=== PATIENT | female | born 1990 | race American Indian/Alaskan Native ===

== ENCOUNTER 2019-06-02 17:55 | Inpatient (IN) | payer MEDICAID ==
[2019-06-02] MEDS ORDERED: TYLENOL PO ONE ×2 (18:34→19:49)
[2019-06-02] MEDS ORDERED: MORPHINE IV ONE ×2 (18:34→22:32)
[2019-06-02] MEDS ORDERED: ZOFRAN IV ONE (18:34)
[2019-06-02] MEDS ORDERED: NACL 0.9% 1000 ML 1,000 ML IV ONE (18:34)
--- NOTE | 2019-06-02 18:35 | Event Note ---
ED Screening Note Date of service: 06/02/19 Time: 18:31 ED Screening Note: 28 y/o female comes for abd pain time 1 week with worsening pain. N/V LMP 05/25/19 G 2 P2 no pain with urination. chills. This initial assessment/diagnostic orders/clinical plan/treatment(s) is/are subject to change based on patients health status, clinical progression and re- assessment by fellow clinical providers in the ED. Further treatment and workup at subsequent clinical providers discretion. Patient/guardian urged not to elope from the ED as their condition may be serious if not clinically assessed and managed. Initial orders include:
[2019-06-02] MEDS ORDERED: PEPCID IV ONE ×2 (19:21→19:24)
[2019-06-02 19:37] LABS: Basophils # (Auto) 0.1 K/mm3 (0.0-0.1); Basophils % (Auto) 0.5 % (0.0-1.8); Eosinophils % (Auto) 0.1 % (0.0-4.3); Hematocrit 39.9 % (30.3-42.9); Hemoglobin 14.1 gm/dl (10.1-14.3); Lymphocytes # (Auto) 2.1 K/mm3 (1.2-5.4); Lymphocytes % (Auto) 10.8 % (13.4-35.0); Mean Corpuscular HGB Conc 35 % (30-34); Mean Corpuscular Volume 88 fl (79-97); Monocytes # (Auto) 1.1 K/mm3 (0.0-0.8); Monocytes % (Auto) 5.6 % (0.0-7.3); Platelet Count 401 K/mm3 (140-440); Red Blood Count 4.51 M/mm3 (3.65-5.03); Red Cell Distribution Width 13.2 % (13.2-15.2)
--- NOTE | 2019-06-02 19:52 | Emergency Department Report ---
ED Abdominal Pain HPI - General Chief Complaint: Abdominal Pain Stated Complaint: ABD PAIN Time Seen by Provider: 06/02/19 18:31 Source: patient, EMS Mode of arrival: Wheelchair Limitations: No Limitations - History of Present Illness Initial Comments: Patient is a 28-year-old, thin female medical history presents with complaint of acute onset persistent severe right upper quadrant abdominal pain that daily as to the right lower quadrant area with persistent nausea and vomiting for the last 1 week. Patient states of appendicitis was made eating or drinking any liquids. Patient also complains of chills and fever for the last 2 days. Patient states that she has not been able to eat anything in the last 24 hours because of persistent nausea, vomiting and pain. Patient denies dizziness, chest pain, shortness of breath, cough, dysuria, urinary frequency and urgency, sore throat, vaginal bleeding, hematochezia, hematemesis, diarrhea or vaginal discharge. MD Complaint: abdominal pain, other (Nausea and vomiting) -: Sudden, week(s) (1) Location: RUQ, RLQ Radiation: RUQ, RLQ Migration to: no migration Severity: severe Severity scale (0 -10): 10 Quality: cramping, aching, sharp Consistency: constant Improves With: nothing Worsens With: nothing Associated Symptoms: denies other symptoms, nausea, vomiting, fever, chills, anorexia. denies: diarrhea, dysuria, hematemesis, hematochezia, melena, syncope - Related Data LMP Date: 05/28/19 Allergies Allergy/AdvReac Type Severity Reaction Status Date / Time No Known Allergies Allergy Unverified 06/02/19 18:09 ED Review of Systems ROS: Stated complaint: ABD PAIN Other details as noted in HPI Constitutional: chills, fever, malaise Eyes: denies: eye pain, eye discharge, vision change ENT: denies: ear pain, throat pain Respiratory: denies: cough, shortness of breath, wheezing Cardiovascular: denies: chest pain, palpitations Endocrine: no symptoms reported Gastrointestinal: abdominal pain, nausea, vomiting. denies: diarrhea Genitourinary: denies: urgency, dysuria, discharge Musculoskeletal: denies: back pain, joint swelling, arthralgia Skin: denies: rash, lesions Neurological: denies: headache, weakness, paresthesias Psychiatric: denies: anxiety, depression Hematological/Lymphatic: denies: easy bleeding, easy bruising ED Past Medical Hx - Past Medical History Previous Medical History?: Yes Additional medical history: epilepsy - Surgical History Past Surgical History?: No - Social History Smoking Status: Current Every Day Smoker Substance Use Type: Marijuana ED Physical Exam - General Limitations: No Limitations General appearance: alert, in no apparent distress - Head Head exam: Present: atraumatic, normocephalic, normal inspection - Eye Eye exam: Present: normal appearance, PERRL, EOMI Pupils: Present: normal accommodation - ENT ENT exam: Present: normal exam, normal orophraynx, mucous membranes moist, TM's normal bilaterally, normal external ear exam - Neck Neck exam: Present: normal inspection, full ROM - Respiratory Respiratory exam: Present: normal lung sounds bilaterally. Absent: respiratory distress, wheezes, rales, rhonchi, chest wall tenderness, accessory muscle use, prolonged expiratory, other - Cardiovascular Cardiovascular Exam: Present: regular rate, normal rhythm, normal heart sounds. Absent: systolic murmur, diastolic murmur, rubs, gallop - GI/Abdominal GI/Abdominal exam: Present: soft, tenderness (RUQ and RLQ tenderness; Postive Rodriguez's sign), guarding, normal bowel sounds. Absent: rebound, hyperactive bowel sounds, hypoactive bowel sounds, organomegaly, mass, pulsatile mass, hernia - Rectal Rectal exam: Present: deferred - Extremities Exam Extremities exam: Present: normal inspection, full ROM, normal capillary refill - Back Exam Back exam: Present: normal inspection, full ROM. Absent: tenderness, CVA tenderness (R), CVA tenderness (L), muscle spasm - Neurological Exam Neurological exam: Present: alert, oriented X3, CN II-XII intact, normal gait, reflexes normal - Psychiatric Psychiatric exam: Present: normal affect, normal mood - Skin Skin exam: Present: warm, dry, intact, normal color. Absent: rash ED Course Vital Signs 06/02/19 18:27 Temperature 100.1 F H Pulse Rate 90 Blood Pressure 125/83 O2 Sat by Pulse 100 Oximetry - Reevaluation(s) Reevaluation #1: 06/02/19 19:54 This is a 28-year-old -[place] female with a history of seizures who presented to the ED with acute onset right upper quadrant abdominal pain that radiates to the right lower quadrant area with nausea and vomiting, fever and chills for 1 week. In the ED, patient is alert and oriented 3, and is not in any distress but febrile and appears to be in pain. Labs were drawn and patient treated for fever, also given normal saline IV fluids. Gallbladder ultrasound was also performed and showed no gallstones but gallbladder sludge. Abdomen pelvis CT scan with contrast showed abnormal right renal cortical enhancement suggestive of pyelonephritis/nephritis without evidence of renal abscess. The appendix was normal. Patient was treated with Rocephin 1 g IV 1 with antiemetics. On reevaluation, patient still complaining of severe right lower quadrant pain with nausea and vomiting and is unable to keep anything by mouth. These findings were discussed with the ED attending physician Dr. Krishna who agreed with the plan ADMIT the patient to the hospital. I therefore paged the hospitalist physician web operations manager Dr. Peralta who admitted the patient to the hospital for further treatment. ED Medical Decision Making - Lab Data Result diagrams: 06/02/19 18:46 06/02/19 18:46 - Radiology Data Radiology results: report reviewed, image reviewed RUQ ULTRASOUND: Findings [place] [id number] Ultrasound Report Signed Patient: DENNIS HAWK MR#: [id number] : 1990 Acct:[id number] Age/Sex: 28 / F ADM Date: 06/02/19 Loc: ED Attending Dr: Ordering Physician: RAHEL FRANK Date of Service: 06/02/19 Procedure(s): US abdomen limited Accession Number(s): [id number] cc: RAHEL FRANK ULTRASOUND ABDOMEN, LIMITED (RIGHT UPPER QUADRANT) INDICATION: RUQ Pain. COMPARISON: None available. FINDINGS: Pancreas: Visualized portion shows no significant abnormality. Liver: Normal. Gallbladder: Small amount of gallbladder sludge without visualized stones Bile ducts: Normal. Common Bile Duct measures 3 mm. Free fluid: None. Additional Findings: None. IMPRESSION: 1. Gallbladder sludge without cholelithiasis Signer Name: Alexander Marquez MD Signed: 06/02/2019 8:49 PM Workstation Name: [id number] Transcribed By: TL Dictated By: Alexander Marquez MD Electronically Authenticated By: Alexander Marquez MD Signed Date/Time: 06/02/192048 DD/ 47 TD/TT: Findings [facility] [address] [place] [address] Cat Scan Report Signed Patient: DENNIS HAWK MR#: [id number] : 1990 Acct:[id number] Age/Sex: 28 / F ADM Date: 06/02/19 Loc: ED Attending Dr: Ordering Physician: RAHEL DAY Date of Service: 06/02/19 Procedure(s): CT abdomen pelvis w con Accession Number(s): [id number] cc: RAHEL DAY CT abdomen pelvis w con INDICATION / CLINICAL INFORMATION: RUQ pain. TECHNIQUE: All CT scans at this location are performed using CT dose reduction for ALARA by means of automated exposure control. COMPARISON: None available. FINDINGS: Lower lungs are clear. ABDOMEN: The gallbladder, liver, spleen and pancreas are normal. The left kidney appears normal. There is patchy enhancement of the right renal parenchyma. No hydronephrosis or urinary calculi. No perinephric fluid collections. Pelvis: The appendix is normal. A small free fluid collection is seen in the pelvis without associated inflammatory changes. Urinary bladder is mildly distended but otherwise unremarkable. Multiple small left ovarian cysts are identified. No skeletal abnormality. IMPRESSION: 1. Abnormal right renal cortical enhancement suggestive of pyelonephritis/nephritis without evidence of renal abscess. 2. Small left ovarian cysts. 3. Small free fluid collection in the pelvis. Signer Name: Morgan Bettencourt MD Signed: 06/02/2019 10:46 PM Workstation Name: [id number] Transcribed By: STEPHIE Dictated By: Morgan Bettencourt MD Electronically Authenticated By: Morgan Bettencourt MD Signed Date/Time: 06/02/192245 DD/ 40 TD/TT: - Medical Decision Making This is a 28-year-old -[place] female with a history of seizures who presented to the ED with acute onset right upper quadrant abdominal pain that radiates to the right lower quadrant area with nausea and vomiting, fever and chills for 1 week. In the ED, patient is alert and oriented 3, and is not in any distress but febrile and appears to be in pain. Labs were drawn and patient treated for fever, also given normal saline IV fluids. Gallbladder ultrasound was also performed and showed no gallstones but gallbladder sludge. Abdomen pelvis CT scan with contrast showed abnormal right renal cortical enhancement suggestive of pyelonephritis/nephritis without evidence of renal abscess. The appendix was normal. Patient was treated with Rocephin 1 g IV 1 with antiemetics. On reevaluation, patient still complaining of severe right lower quadrant pain with nausea and vomiting and is unable to keep anything by mouth. These findings were discussed with the ED attending physician Dr. Krishna who agreed with the plan ADMIT the patient to the hospital. I therefore paged the hospitalist physician web operations manager Dr. Peralta who admitted the patient to the hospital for further treatment. - Differential Diagnosis Abdominal pain; Acute pyelonephritis; Acute URI; Fever; Vomiting Critical care attestation.: If time is entered above; I have spent that time in minutes in the direct care of this critically ill patient, excluding procedure time. ED Disposition Clinical Impression: Nausea and vomiting in adult, Fever and chills, Acute pyelonephritis, Acute urinary tract infection Abdominal pain Qualifiers: Abdominal location: lower abdomen, unspecified Qualified Code(s): R10.30 - Lower abdominal pain, unspecified Disposition: OP ADMIT IP TO THIS HOSP Is pt being admited?: Yes Does the pt Need Aspirin: No Condition: Stable Instructions: Urinary Tract Infection in Women (ED), Fever in Adults (ED), Acute Pyelonephritis (ED), Acute Nausea and Vomiting (ED), Abdominal Pain (ED) Additional Instructions: Take medications with food, drink plenty off fluids and follow-up with your primary care physician in 7-10 days for reevaluation. Return to the ED immediately if symptoms get worse. Referrals: [facility] [Outside] - 3-5 Days Time of Disposition: 00:27 Print Language: SPANISH
[2019-06-02 19:55] LABS: Alanine Aminotransferase 12 units/L (7-56); Albumin 4.3 g/dL (3.9-5); BUN/Creatinine Ratio 7; Blood Urea Nitrogen 6 mg/dL (7-17); Calcium 9.4 mg/dL (8.4-10.2); Hemolysis Index 0
--- NOTE | 2019-06-02 20:53 | Ultrasound Report ---
ULTRASOUND ABDOMEN, LIMITED (RIGHT UPPER QUADRANT) INDICATION: RUQ Pain. COMPARISON: None available. FINDINGS: Pancreas: Visualized portion shows no significant abnormality. Liver: Normal. Gallbladder: Small amount of gallbladder sludge without visualized stones Bile ducts: Normal. Common Bile Duct measures 3 mm. Free fluid: None. Additional Findings: None. IMPRESSION: 1. Gallbladder sludge without cholelithiasis Signer Name: Alexander Marquez MD Signed: 06/02/2019 8:49 PM Workstation Name: [id number]
[2019-06-02 21:44] LABS: HCG Qualitative,Urine Negative (Negative)
[2019-06-02 21:48] LABS: Bilirubin,Urine NEG (Negative); Blood,Urine MOD (Negative); Color,Urine Yellow (Yellow); Mucus,Urine FEW /HPF
[2019-06-02] MEDS ORDERED: ROCEPHIN/NS 1 GM/50 ML 1 GM/50 ML BAG IV ONE (22:21)
[2019-06-02] MEDS ORDERED: REGLAN IV ONE (22:32)
--- NOTE | 2019-06-02 22:50 | Cat Scan Report ---
CT abdomen pelvis w con INDICATION / CLINICAL INFORMATION: RUQ pain. TECHNIQUE: All CT scans at this location are performed using CT dose reduction for ALARA by means of automated e xposure control. COMPARISON: None available. FINDINGS: Lower lungs are clear. ABDOMEN: The gallbladder, liver, spleen and pancreas are normal. The left kidney appears normal. There is patchy enhancement of the right renal parenchyma. No hydronephrosis or urinary calculi. No perinephric fluid collections. Pelvis: The appendix is normal. A small free fluid collection is seen in the pelvis without associated inflammatory changes. Urinary bladder is mildly distended but otherwise unremarkable. Multiple small left ovarian cysts are identified. No skeletal abnormality. IMPRESSION: 1. Abnormal right renal cortical enhancement suggestive of pyelonephritis/nephritis without evidence of renal abscess. 2. Small left ovarian cysts. 3. Small free fluid collection in the pelvis. Signer Name: Morgan Bettencourt MD Signed: 06/02/2019 10:46 PM Workstation Name: [id number]
[2019-06-03] MEDS ORDERED: DILAUDID IV ONE (00:28)
[2019-06-03] MEDS ORDERED: ZOFRAN IV ONE (00:28)
[2019-06-03] MEDS ORDERED: NACL 0.9% 1000 ML 1,000 ML IV ONE (00:28)
[2019-06-03] MEDS ORDERED: SODIUM CHLORIDE FLUSH SYRINGE 10 ML IV PRN (01:16)
[2019-06-03] MEDS ORDERED: TYLENOL PO PRN (01:16)
[2019-06-03] MEDS ORDERED: ZOFRAN IV PRN (01:16)
--- NOTE | 2019-06-03 01:18 | History and Physical Report ---
History of Present Illness Date of examination: 06/03/19 History of present illness: 28-year-old woman with no medical problems comes emergency room with complaints of right-sided pain, sharp, constant, intensity 7/10, no radiation, can't identify exacerbating factors. Admit somewhat less of nausea and vomiting, unable to tolerate oral intake. No dysuria, + frequency eview Of Systems: Constitutional: no weight loss, fever, chills Ears, eyes, nose, mouth and throat: no nasal congestion, no nasal discharge, no sinus pressure, blurry vision, diplopia Neck: No neck pain or rigidity. Cardiovascular: No palpitations, chest pain Respiratory: No shortness of breath, cough Gastrointestinal: No hematochezia, abdominal pain Genitourinary : no dysuria, frequency , hematuria Musculoskeletal: no muscle ache , joint pain Integumentary: no rash, no pruritis Neurological: no parathesias, focal weakness Endocrine: no cold or heat intolerance, no polyuria or polydipsia Hematologic/Lymphatic: no easy bruising, no easy bleeding, no gland swelling Allergic/Immunologic: no urticaria, no angioedema. PAST MEDICAL HISTORY: None PAST SURGICAL HISTORY:None FAMILY HISTORY:hypertension, diabetes SOCIAL HISTORY: Denies tobacco, drugs, alcohol Medications and Allergies Allergies Allergy/AdvReac Type Severity Reaction Status Date / Time No Known Allergies Allergy Unverified 06/02/19 18:09 Home Medications Medication Instructions Recorded Confirmed Last Taken Type levETIRAcetam [Keppra TAB] 1,000 mg PO BID 06/03/19 06/03/19 06/02/19 History 1000mg Acetaminophen [Acetaminophen TAB] 650 mg PO Q4H PRN tablet 06/05/19 Unknown Rx levoFLOXacin [Levaquin] 750 mg PO QDAY #5 tablet 06/05/19 Unknown Rx Active Meds: Active Medications Acetaminophen (Tylenol) 650 mg PO Q4H PRN PRN Reason: Pain MILD(1-3)/Fever >100.5/MCNULTY Enoxaparin Sodium (Lovenox) 30 mg SUB-Q QDAY IGNACIO Sodium Chloride (Nacl 0.9% 1000 Ml) 1,000 mls @ 999 mls/hr IV BOLUS ONE Stop: 06/03/19 01:28 Sodium Chloride (Nacl 0.9% 1000 Ml) 1,000 mls @ 150 mls/hr IV DIRECT IGNACIO Morphine Sulfate (Morphine) 2 mg IV Q4H PRN PRN Reason: Pain, Moderate (4-6) Ondansetron HCl (Zofran) 4 mg IV Q4H PRN PRN Reason: Nausea And Vomiting Sodium Chloride (Sodium Chloride Flush Syringe 10 Ml) 10 ml IV BID IGNACIO Sodium Chloride (Sodium Chloride Flush Syringe 10 Ml) 10 ml IV PRN PRN PRN Reason: LINE FLUSH Exam - Physical Exam Narrative exam: General Apperance: The patient sitting in bed no acute distress HEENT: Normocephalic, atraumatic. Pupils equally round and reactive to light, extraocular movement intact, and no sclericterus or JVD or thyromegaly or nodule. Neck supple, no carotid bruit, mucous membranes moist, no exudate or erythema Heart: S1-S2, regular is rhythm Lungs: Clear to auscultation bilaterally, breathing comfortable Abdomen: Positive bowel sounds, soft, nontender, nondistended, no organomegaly Extremities: No edema cyanosis clubbing Skin: no rash, nodule, warm and dry Neuro:CN 2 -12 intact, motor/sensory intact, speech is fluent - Constitutional Vitals: Temp Pulse Resp BP Pulse Ox 100.1 F H 90 125/83 100 06/02/19 18:27 06/02/19 18:27 06/02/19 18:27 06/02/19 18:27 Results - Labs CBC & Chem 7: 06/05/19 05:35 06/04/19 12:51 Labs: Abnormal lab results 06/02/19 06/02/19 06/02/19 Range/Units 18:46 18:46 21:24 WBC 19.3 H (4.5-11.0) K/mm3 MCHC 35 H (30-34) % Lymph % (Auto) 10.8 L (13.4-35.0) % [place] # 1.1 H (0.0-0.8) K/mm3 Seg Neutrophils % 83.0 H (40.0-70.0) % Seg Neutrophils # 16.0 H (1.8-7.7) K/mm3 Carbon Dioxide 20 L (22-30) mmol/L BUN 6 L (7-17) mg/dL Total Protein 9.0 H (6.3-8.2) g/dL Urine WBC (Auto) 81.0 H (0.0-6.0) /HPF - Imaging and Cardiology CT scan - abdomen: report reviewed CT scan - pelvis: report reviewed Assessment and Plan Assessment Acute pyelonephritis Nausea and vomiting Admitted to medicine Start IV Rocephin IV fluid, pain medication and DVT prophylaxis
[2019-06-03] MEDS ORDERED: LEVAQUIN 750MG/150ML 750 MG/150 ML BAG IV SCH (01:19)
[2019-06-03 02:39] LABS: BUN/Creatinine Ratio 9; Blood Urea Nitrogen 8 mg/dL (7-17); Calcium 8.5 mg/dL (8.4-10.2); Hemolysis Index 9
[2019-06-03 03:40] LABS: Hematocrit 41.1 % (30.3-42.9); Hemoglobin 13.6 gm/dl (10.1-14.3); Mean Corpuscular HGB Conc 33 % (30-34); Mean Corpuscular Volume 90 fl (79-97); Platelet Count 378 K/mm3 (140-440); Red Blood Count 4.58 M/mm3 (3.65-5.03); Red Cell Distribution Width 13.1 % (13.2-15.2)
[2019-06-03 04:25] LABS: Basophils % (Manual) 0 % (0.0-1.8); Eosinophils % (Manual) 0 % (0.0-4.3); Total Cells Counted 100
[2019-06-03 04:26] LABS: Anisocytosis Few; Platelet Estimate Consistent w Auto
[2019-06-03] MEDS: NACL 0.9% 1000 ML 1,000 ML IV SCH ×3 (05:00→22:50)
[2019-06-03] MEDS: MORPHINE IV PRN ×3 (05:19→21:32)
[2019-06-03 06:44] LABS: Basophils # (Auto) 0.1 K/mm3 (0.0-0.1); Basophils % (Auto) 0.4 % (0.0-1.8); Eosinophils % (Auto) 0.1 % (0.0-4.3); Lymphocytes # (Auto) 2.6 K/mm3 (1.2-5.4); Lymphocytes % (Auto) 14.1 % (13.4-35.0); Monocytes # (Auto) 1.4 K/mm3 (0.0-0.8); Monocytes % (Auto) 7.6 % (0.0-7.3)
[2019-06-03] MEDS: LOVENOX SUB-Q SCH (09:31)
[2019-06-03] MEDS: SODIUM CHLORIDE FLUSH SYRINGE 10 ML IV SCH ×2 (09:32→21:38)
[2019-06-03] MEDS ORDERED: LOVENOX SUB-Q SCH (10:00)
[2019-06-03] MEDS: PERCOCET 5/325 PO PRN ×3 (12:02→23:56)
[2019-06-03] MEDS: KEPPRA PO SCH ×2 (12:02→21:35)
[2019-06-03] MEDS: ROCEPHIN/NS 1 GM/50 ML 1 GM/50 ML BAG IV SCH (12:26)
[2019-06-03] MEDS ORDERED: ALUM-MAG HYDROX-SIMETH 200-200-20MG/5ML PO PRN (22:36)
[2019-06-04] MEDS: PERCOCET 5/325 PO PRN ×3 (06:00→20:22)
--- NOTE | 2019-06-04 07:24 | Event Note ---
Date: 06/03/19 patient seen and examined presented with UTI and pylonephritis, follow Cx, cont abx possible d/c in 1/2 days pending clinical improvement
[2019-06-04] MEDS ORDERED: PEPCID IV SCH (10:00)
[2019-06-04] MEDS: ROCEPHIN/NS 1 GM/50 ML 1 GM/50 ML BAG IV SCH (10:46)
[2019-06-04] MEDS: KEPPRA PO SCH ×2 (10:46→21:46)
[2019-06-04] MEDS: LOVENOX SUB-Q SCH (10:46)
[2019-06-04] MEDS: SODIUM CHLORIDE FLUSH SYRINGE 10 ML IV SCH ×2 (10:47→21:46)
[2019-06-04 13:41] LABS: Hematocrit 39.1 % (30.3-42.9); Hemoglobin 13.2 gm/dl (10.1-14.3); Mean Corpuscular HGB Conc 34 % (30-34); Mean Corpuscular Volume 89 fl (79-97); Platelet Count 385 K/mm3 (140-440); Red Blood Count 4.42 M/mm3 (3.65-5.03); Red Cell Distribution Width 13.1 % (13.2-15.2)
[2019-06-04 14:01] LABS: BUN/Creatinine Ratio 9; Blood Urea Nitrogen 6 mg/dL (7-17); Calcium 8.6 mg/dL (8.4-10.2); Hemolysis Index 0
--- NOTE | 2019-06-04 15:48 | Progress Note ---
Assessment and Plan Acute pyelonephritis with sepsis Nausea and vomiting due to above Mild hyponatremia, due to dehydration DVT prophylaxis -Continue IV Rocephin, IV fluid, pain medication, follow culture - Follow fever curve, DVT prophylaxis with Lovenox - Monitor BMP Physical exam: GENERAL: well-developed and well-nourished -[place] female lying on bed appeared to be in no discomfort. HEENT: Normocephalic. Atraumatic. No conjunctival congestion or icterus. Patient has moist mucous membranes. NECK: Supple. Trachea midline. CHEST/LUNGS: Clear to auscultated bilaterally, breathing nonlabored. No wheezes crackles or rhonchi. HEART/CARDIOVASCULAR: Regular in rate and rhythm. S1 and S2 positive. ABDOMEN: Abdomen is soft, + right flank CVA tender. Patient has normal bowel sounds. SKIN: There is no rash. Warm and dry. NEURO: No focal motor deficit. Follows command. MUSCULOSKELETAL: No joint effusion or tenderness. EXTRIMITY: No edema, no cyanosis or clubbing. PSYCH: Cooperative. Subjective Date of service: 06/04/19 Interval history: Patient seen and examined. Medical records and medication list reviewed. No acute event overnight noted by the RN. Patient denies any chest pain or difficulty breathing. Patient is tolerating diet. Still complains of abdominal pain and dysuria Discussed plan of care at bedside with patient. Objective - Constitutional Vitals: Vital Signs - 12hr 06/04/19 06/04/19 06:10 11:39 Temperature 98.2 F 98.9 F Pulse Rate 68 83 Respiratory 18 18 Rate Blood Pressure 104/75 130/93 O2 Sat by Pulse 100 100 Oximetry - Labs CBC & Chem 7: 06/04/19 12:51 06/04/19 12:51 Labs: Abnormal lab results 06/04/19 06/04/19 Range/Units 12:51 12:51 WBC 14.5 H (4.5-11.0) K/mm3 RDW 13.1 L (13.2-15.2) % Carbon Dioxide 21 L (22-30) mmol/L BUN 6 L (7-17) mg/dL
[2019-06-04] MEDS: NACL 0.9% 1000 ML 1,000 ML IV SCH ×2 (16:41→22:36)
[2019-06-04] MEDS: MORPHINE IV PRN (19:09)
[2019-06-04] MEDS: PEPCID PO SCH (21:46)
[2019-06-05] MEDS: PERCOCET 5/325 PO PRN (03:46)
[2019-06-05 06:24] LABS: Basophils % (Auto) 0.2 % (0.0-1.8); Eosinophils # (Auto) 0.1 K/mm3 (0.0-0.4); Eosinophils % (Auto) 0.5 % (0.0-4.3); Hematocrit 36.2 % (30.3-42.9); Lymphocytes # (Auto) 1.9 K/mm3 (1.2-5.4); Lymphocytes % (Auto) 15.2 % (13.4-35.0); Mean Corpuscular HGB Conc 33 % (30-34); Mean Corpuscular Volume 89 fl (79-97); Monocytes # (Auto) 0.9 K/mm3 (0.0-0.8); Monocytes % (Auto) 7.4 % (0.0-7.3); Platelet Count 344 K/mm3 (140-440); Red Blood Count 4.06 M/mm3 (3.65-5.03); Red Cell Distribution Width 12.9 % (13.2-15.2)
[2019-06-05] MEDS: KEPPRA PO SCH (11:05)
[2019-06-05] MEDS: PEPCID PO SCH (11:05)
[2019-06-05] MEDS: ROCEPHIN/NS 1 GM/50 ML 1 GM/50 ML BAG IV SCH (11:06)
[2019-06-05] MEDS: LOVENOX SUB-Q SCH (11:06)
[2019-06-05] MEDS: SODIUM CHLORIDE FLUSH SYRINGE 10 ML IV SCH (11:10)
[2019-06-05] MEDS ORDERED: BENADRYL PO PRN (12:00)
[2019-06-05 12:42] VITALS: BP 133/92
--- NOTE | 2019-06-05 13:12 | Discharge Summary ---
Providers - Providers Date of Admission: 06/03/19 01:11 Date of discharge: 06/05/19 Attending physician: MICHAEL ORNELAS Primary care physician: JUDY CACERES Hospitalization Condition: Stable Hospital course: Discharge diagnosis: Acute pyelonephritis with sepsis Nausea and vomiting due to above Mild hyponatremia, due to dehydration DVT prophylaxis -Continue IV Rocephin, IV fluid, pain medication, culture grew e.coli - Follow fever curve, DVT prophylaxis with Lovenox - Monitor BMP Physical exam: GENERAL: well-developed and well-nourished -[place] female lying on bed appeared to be in no discomfort. HEENT: Normocephalic. Atraumatic. No conjunctival congestion or icterus. Patient has moist mucous membranes. NECK: Supple. Trachea midline. CHEST/LUNGS: Clear to auscultated bilaterally, breathing nonlabored. No wheezes crackles or rhonchi. HEART/CARDIOVASCULAR: Regular in rate and rhythm. S1 and S2 positive. ABDOMEN: Abdomen is soft, + right flank CVA tender. Patient has normal bowel sounds. SKIN: There is no rash. Warm and dry. NEURO: No focal motor deficit. Follows command. MUSCULOSKELETAL: No joint effusion or tenderness. EXTRIMITY: No edema, no cyanosis or clubbing. PSYCH: Cooperative. Disposition: DC-01 TO HOME OR SELFCARE Time spent for discharge: 34 minutes Core Measure Documentation - Palliative Care Palliative Care/ Comfort Measures: Not Applicable - Core Measures Any of the following diagnoses?: none Exam - Constitutional Vitals: Temp Pulse Resp BP Pulse Ox 97.4 F L 61 18 133/92 100 06/05/19 12:20 06/05/19 12:20 06/05/19 12:20 06/05/19 12:20 06/05/19 12:20 Plan Activity: advance as tolerated Weight Bearing Status: Weight Bear as Tolerated Diet: low fat, low salt [facility] Prescriptions: levoFLOXacin [Levaquin] 750 mg PO QDAY #5 tablet
== END 2019-06-05 16:20 | disposition home or self-care (01) | DRG 872 ==
LOC: ED 17:55 → 4A 06-03 01:11 → 3A 06-03 03:26
PROVIDERS: ADMIT Internal Medicine; ATTEND Internal Medicine
DX: A41.9 Sepsis, unspecified organism (principal); N10 Acute pyelonephritis; E87.1 Hypo-osmolality and hyponatremia; E86.0 Dehydration; F17.200 Nicotine dependence, unspecified, uncomplicated; F12.90 Cannabis use, unspecified, uncomplicated; Z82.49 Family history of ischemic heart disease and other diseases of the circulatory system; Z83.3 Family history of diabetes mellitus; Z79.899 Other long term (current) drug therapy
CPT/HCPCS: 36415; 74177; 76705; 80048; 80053; 81001; 81025; 82140; 83690; 85007; 85025; 85027; 87040; 87076; 87086; 87116; 87186; 99406; G0378; J0696; J1650; J1956; J2270; J2405; J2765; J7030; Q9967

== ENCOUNTER 2021-10-28 11:13 | Emergency (ER) | payer MEDICAID ==
--- NOTE | 2021-10-28 14:02 | Emergency Department Report ---
- General Chief complaint: Skin/Abscess/Foreign Body Stated complaint: BOIL Time Seen by Provider: 10/28/21 13:53 Source: patient Mode of arrival: Ambulatory Limitations: No Limitations - History of Present Illness Initial comments: 30 year female presents to ED with complaints to abscess to right face. She states that it started off like a small bump about 1 week ago but since then has gotten worse. She states that it now feels like her entire right face swollen with increased pain. She states that he did drink a little bit couple days ago and did go down, but it flared back up. She denies any significant amount of redness to the right side of her face, difficulty opening her mouth, dental pain, difficulty swallowing fever or chills. Other than history of seizure di sorder she denies any other significant past medical history. MD complaint: abscess/boil -: week(s) (1) - Related Data Home Medications Medication Instructions Recorded Confirmed Last Taken levETIRAcetam [Keppra TAB] 1,000 mg PO BID 06/03/19 06/03/19 06/02/19 1000 mg Previous Rx's Medication Instructions Recorded Last Taken Type Acetaminophen [Acetaminophen TAB] 650 mg PO Q4H PRN tablet 06/05/19 Unknown Rx levoFLOXacin [Levaquin] 750 mg PO QDAY #5 tablet 06/05/19 Unknown Rx Acetaminophen/Codeine [Tylenol 1 tab PO Q6H PRN #12 tab 10/28/21 Unknown Rx /Codeine # 3 tab] DOXYCYCLINE Hyclate [Vibramycin 100 mg PO Q12HR #14 capsule 10/28/21 Unknown Rx CAP] Ibuprofen [Motrin] 600 mg PO Q8H PRN #30 tablet 10/28/21 Unknown Rx Allergies Allergy/AdvReac Type Severity Reaction Status Date / Time No Known Allergies Allergy Unverified 06/02/19 18:09 Abscess Boil HPI - HPI Chief Complaint: Skin/Abscess/Foreign Body Stated Complaint: BOIL Time Seen by Provider: 10/28/21 13:53 Home Medications: Home Medications Medication Instructions Recorded Confirmed Last Taken levETIRAcetam [Keppra TAB] 1,000 mg PO BID 06/03/19 06/03/19 06/02/19 1000 mg Previous Rx's Medication Instructions Recorded Last Taken Type Acetaminophen [Acetaminophen TAB] 650 mg PO Q4H PRN tablet 06/05/19 Unknown Rx levoFLOXacin [Levaquin] 750 mg PO QDAY #5 tablet 06/05/19 Unknown Rx Acetaminophen/Codeine [Tylenol 1 tab PO Q6H PRN #12 tab 10/28/21 Unknown Rx /Codeine # 3 tab] DOXYCYCLINE Hyclate [Vibramycin 100 mg PO Q12HR #14 capsule 10/28/21 Unknown Rx CAP] Ibuprofen [Motrin] 600 mg PO Q8H PRN #30 tablet 10/28/21 Unknown Rx Allergies/Adverse Reactions: Allergies Allergy/AdvReac Type Severity Reaction Status Date / Time No Known Allergies Allergy Unverified 06/02/19 18:09 ED Review of Systems ROS: Stated complaint: BOIL Other details as noted in HPI Comment: All other systems reviewed and negative Constitutional: denies: chills, fever, weakness Eyes: denies: eye pain, eye discharge, vision change ENT: denies: ear pain, throat pain, congestion Respiratory: denies: cough, shortness of breath, SOB with exertion, SOB at rest, wheezing Cardiovascular: denies: chest pain, palpitations, dyspnea on exertion, edema, syncope, paroxysmal nocturnal dyspnea Gastrointestinal: denies: abdominal pain, nausea, vomiting, diarrhea, constipation, hematemesis, melena, hematochezia Skin: rash, other (Abscess to face). denies: change in color, change in hair/nails, pruritus Neurological: denies: headache, weakness, numbness, paresthesias, confusion, abnormal gait, vertigo Psychiatric: denies: anxiety, depression, auditory hallucinations, visual hallucinations, homicidal thoughts, suicidal thoughts Hematological/Lymphatic: denies: easy bleeding, easy bruising ED Past Medical Hx - Past Medical History Hx Congestive Heart Failure: No Hx Diabetes: No Hx Seizures: Yes Hx Asthma: Yes Hx COPD: No Hx HIV: No Additional medical history: epilepsy - Social History Smoking Status: Current Every Day Smoker - Medications Home Medications: Home Medications Medication Instructions Recorded Confirmed Last Taken Type levETIRAcetam [Keppra TAB] 1,000 mg PO BID 06/03/19 06/03/19 06/02/19 History 1000 mg Acetaminophen [Acetaminophen TAB] 650 mg PO Q4H PRN tablet 06/05/19 Unknown Rx levoFLOXacin [Levaquin] 750 mg PO QDAY #5 tablet 06/05/19 Unknown Rx Acetaminophen/Codeine [Tylenol 1 tab PO Q6H PRN #12 tab 10/28/21 Unknown Rx /Codeine # 3 tab] DOXYCYCLINE Hyclate [Vibramycin 100 mg PO Q12HR #14 capsule 10/28/21 Unknown Rx CAP] Ibuprofen [Motrin] 600 mg PO Q8H PRN #30 tablet 10/28/21 Unknown Rx ED Physical Exam - General Limitations: No Limitations General appearance: alert, in no apparent distress - Head Head exam: Present: atraumatic, normocephalic, normal inspection - Eye Eye exam: Present: normal appearance, PERRL, EOMI Pupils: Present: normal accommodation - Neck Neck exam: Present: normal inspection, full ROM - Respiratory Respiratory exam: Present: normal lung sounds bilaterally. Absent: respiratory distress, wheezes, rales, rhonchi - Cardiovascular Cardiovascular Exam: Present: regular rate, normal rhythm, normal heart sounds - Neurological Exam Neurological exam: Present: alert, oriented X3, CN II-XII intact, normal gait - Psychiatric Psychiatric exam: Present: normal affect, normal mood - Skin Skin exam: Present: other (Abscess, but the size of a quarter noted to right cheek with some mild erythema and swelling but no streaking, no significant lymphangitis, no associated dental abscess, no periorbital involvement) ED Course Vital Signs 10/28/21 10/28/21 13:47 14:03 Temperature 98.8 F 98.9 F Pulse Rate 57 L 86 Respiratory 16 20 Rate Blood Pressure 128/76 Blood Pressure 115/70 128/76 [Right] O2 Sat by Pulse 100 100 Oximetry - I & D Right Face Type of Procedure: Simple Site: right cheek Blade Size: 11 I & D Procedure: betadine prep Progress: Lidocaine 1% used. A small incision made using a 15 inch blade No pus drained, small amount of blood drained No packing placed Patient tolerated procedure well without complications. Critical care attestation.: If time is entered above; I have spent that time in minutes in the direct care of this critically ill patient, excluding procedure time. ED Disposition Clinical Impression: Abscess of face Disposition: HOME / SELF CARE / HOMELESS Is pt being admited?: No Does the pt Need Aspirin: No Condition: Stable Instructions: Skin Abscess, [id number] Additional Instructions: Keep wound clean daily with soap and water. Do not use alcohol or peroxide to clean the wound. Take the doxycycline as prescribed to completion. Take the pain medication as prescribed. You can continue applying warm compresses to the face to help with pain and swelling. You may notice continued drainage while taking antibiotics, doing warm compresses and this will be normal. Return to the ER if any point your symptoms worsens with development of fever. Prescriptions: Ibuprofen [Motrin] 600 mg PO Q8H PRN #30 tablet PRN Reason: Pain Acetaminophen/Codeine [Tylenol /Codeine # 3 tab] 1 tab PO Q6H PRN #12 tab PRN Reason: Pain , Severe (7-10) DOXYCYCLINE Hyclate [Vibramycin CAP] 100 mg PO Q12HR #14 capsule Referrals: PRIMARY CARE,MD [Primary Care Provider] - 3-5 Days Forms: Work/School Release Form(ED) Time of Disposition: 14:31
[2021-10-28 14:06] VITALS: BP 128/76
[2021-10-28] MEDS ORDERED: IBUPROFEN 600 MG TAB PO ONE (14:41)
[2021-10-28] MEDS ORDERED: ACETAMINOPHEN 325 MG TAB PO ONE (14:41)
== END 2021-10-28 15:07 | disposition home or self-care (01) ==
LOC: ED 11:13
DX: L02.01 Cutaneous abscess of face (principal); J45.909 Unspecified asthma, uncomplicated; F17.200 Nicotine dependence, unspecified, uncomplicated; Z79.899 Other long term (current) drug therapy
CPT/HCPCS: 99282